=== PATIENT | male | born 1955 | race African-American/Black ===

== ENCOUNTER 2016-10-03 15:54 | Emergency (ER) | payer MEDICAID ==
[~2016-10-03] VITALS: Ht 180.3 cm; Wt 91.0 kg
[2016-10-03 15:56] VITALS: BP 150/81
== END 2016-10-03 19:42 | disposition left against medical advice (07) ==
LOC: ER 16:13
DX: R03.0 Elevated blood-pressure reading, without diagnosis of hypertension (principal); Z53.21 Procedure and treatment not carried out due to patient leaving prior to being seen by health care provider

== ENCOUNTER 2021-04-12 01:32 | Emergency (ER) | payer MEDICAID ==
[~2021-04-12] VITALS: Ht 175.3 cm; Wt 77.0 kg
[2021-04-12 02:05] VITALS: BP 196/92
[2021-04-12] MEDS ORDERED: NITR0.4T SL (02:05)
[2021-04-12] MEDS ORDERED: ACETAMINOPHEN 500MG TABLET PO ONE (02:15)
== END 2021-04-12 02:49 | disposition home or self-care (01) ==
LOC: ER 01:32
DX: Z76.0 Encounter for issue of repeat prescription (principal); G89.29 Other chronic pain; M54.9 Dorsalgia, unspecified; E78.00 Pure hypercholesterolemia, unspecified; E11.9 Type 2 diabetes mellitus without complications
CPT/HCPCS: 93005; 99283